=== PATIENT | male | born 1945 | race Caucasian/White ===

== ENCOUNTER 2016-04-17 07:15 | Day surgery (SDC) | payer MEDICARE ==
[~2016-04-17] VITALS: Ht 182.9 cm; Wt 102.1 kg
[~2016-04-17 07:15] MED LIST: ASPI-973 PO; Sodium Chloride LOK Flush 10 mL Syringe IV PRN; fentaNYL-PF 50 mCg/mL 2 mL Inj IVPUSH PRN
[2016-04-17 07:32] VITALS: BP 152/92; PULSE 84; RESP 17; O2SAT 96
[2016-04-17] MEDS: 0.9% Sodium Chloride 1,000 ML IV SCH ×2 (08:17→09:10)
[2016-04-17 09:11] VITALS: BP 142/87; PULSE 73; O2SAT 95
[2016-04-17 09:21] VITALS: BP 140/80; PULSE 119; O2SAT 96
--- NOTE | 2016-04-17 09:51 | ENDO ---
[address] [address] ENDOSCOPY PROCEDURE PATIENT: BHUMIKA WEEMS : 1945 MR#: [id number] ADMIT: 04/17/2016 JOB ID: [id number] DATE: 04/17/2016 PROCEDURE: Colonoscopy. INDICATION: The patient with a personal history of colon polyps. The patient's ASA classification is 2. Mallampati score is 2. MEDICATIONS: 1. Versed 7 mg. 2. Fentanyl 125 mcg. INSTRUMENT USED: PCF H 180 AL as well as a PCF H 180 AL. PREPARATION QUALITY: Was fair. PROCEDURE DETAILS: After informed consent was obtained, the patient was brought into the GI suite, where he was placed on oxygen via nasal cannula and monitored with continuous pulse oximeter, telemetry, and blood pressure monitoring. A time-out was performed. Then, he was placed in the left lateral decubitus position. Medications were then administered for sedation. A digital rectal examination was performed, which was unremarkable. The colonoscope was then inserted into the rectum and advanced under direct visualization to the cecum, which was identified by the presence of the ileocecal valve and appendiceal orifice. Once the cecum was reached, the colonoscope was withdrawn back to the rectum. Mucosa and lumen were examined. In the rectum, retroflexion was performed. Following retroflexion, remaining air in the rectum was suctioned, and procedure was completed. The procedure was quite difficult secondary to a tortuous and redundant colon. We did initially start off with the pediatric colonoscope. However, as we were unable to reach the cecum, the pediatric colonoscope was then withdrawn and an adult colonoscope was then inserted into the rectum and advanced to the cecum with the application of abdominal pressure and multiple position changes. FINDINGS: 1. In the cecum there was a focal 2-4 mm area of erythema that was biopsied. Under narrow band imaging, this did not appear to be adenomatous. 2. A scar was noted in the ascending colon, a site of previous polypectomy. 3. In the distal sigmoid colon, there was an approximately 4 mm polyp that was removed with a cold biopsy forceps. IMPRESSION: 1. Focal erythema in the cecum. 2. Sigmoid polyp. 3. Old scar in the ascending colon. COMPLICATIONS: None. ESTIMATED BLOOD LOSS: Less than 5 mL. RECOMMENDATIONS: Repeat colonoscopy pending polyp pathology results.
--- NOTE | 2016-04-19 11:34 | PATH ---
SURGICAL PATHOLOGY Attending Physician:Marco Howard CASE STATUS: Signed Out PATIENT NAME: BHUMIKA WEEMS PID: [id number] : 1945 DATE COLLECTED:04/17/2016 20:02 SPECIMEN: 1: Colon, Biopsy 2: Colon, Biopsy CLINICAL HISTORY: 1. CECAL BIOPSY 2. SIGMOID POLYP FINAL DIAGNOSIS: 1. Cecal Biopsy: Colonic mucosa with no diagnostic alterations. Negative for inflammation, dysplasia and malignancy. Multiple microscopic levels examined. 2. Sigmoid Polyp: Tubular adenoma. ICD10 D12.5 GROSS DESCRIPTION: The specimen is received in two formalin filled containers labeled with the patient's name. 1). The specimen is sublabeled "cecal" and consists of 3 portions of tissue which aggregate to 0.3 x 0.3 x 0.2 CM. The specimen is entirely submitted in cassette 1A. 2). The specimen is sublabeled "sigmoid polyp" and consists of 3 portions of tissue which aggregate to 0.3 x 0.3 x 0.2 CM. The specimen is entirely submitted in cassette 2A. 04/17/2016 [facility] MICRO DESCRIPTION: Please see diagnosis. ICD-9 CODES: CPT CODES: 1: 18144 2: 73391 Electronically Signed Out Leelee Rosenberg MD [facility] Pathology [facility] [address], [place] [address] Technical component performed at [facility], [facility] [address], [place], [address]
== END 2016-04-17 23:59 | disposition home or self-care (01) ==
LOC: END 07:15
PROVIDERS: ATTEND Internal Medicine Gastroenterology
DX: Z12.11 Encounter for screening for malignant neoplasm of colon (principal); Z86.010 Personal history of colon polyps; D12.5 Benign neoplasm of sigmoid colon; Z79.82 Long term (current) use of aspirin
CPT/HCPCS: 45380; 99153; G0500; J2250; J7030